=== PATIENT | female | born 1990 | race Caucasian/White ===

== ENCOUNTER 2017-03-17 17:15 | Emergency (ER) | payer OTHER ==
--- NOTE | 2017-03-17 17:28 | PDOC ---
History of Present Illness - General History Source: Patient Exam Limitations: No Limitations - History of Present Illness Initial Comments: 03/17/17 18:09 The patient is a year old female, with a significant past medical history of Asthma, who presents to the emergency department with, Right sided abdominal pain that began tuesday. . She states the RLQ pain began tuesday suddenly while at home. She reports taking Z pack for pain initially. Patient reports returning of RLQ pain yesterday when off antibiotics. She reports radiation of pain to left side flank and LLQ yesterday secondary to RLQ pain. Patient reports experiencing urinary frequency and urgency yesterday secondary to RLQ pain. Patient reports experiencing intermittent episodes of nausea and chills secondary to RLQ pain. She states experiencing one episode of hematuria last week and one episode of vaginal discharge yesterday. She reports her last menstrual cycle was 3 weeks ago. Patient reports taking Amoxicillin two weeks ago for 5 days for possible UTI. She denies chest pain, shortness of breath, headache and dizziness. She denies fever, chills, nausea, vomit, diarrhea and constipation. PMH: Asthma Allergies: Seasonal Past surgical history: Tonsillectomy Social history: Social drinker, No smoking. No illicit drugs. PCP: Dr. Fletcher 03/17/17 18:29 <Corwin Longoria - Last Filed: 03/17/17 18:29> <Vignesh Dubose - Last Filed: 03/17/17 18:38> - General Chief Complaint: Pain Stated Complaint: UIT, FLANK & BACK PAIN Time Seen by Provider: 03/17/17 17:25 Past History <Corwin Longoria - Last Filed: 03/17/17 18:29> <Vignesh Dubose - Last Filed: 03/17/17 18:38> - Past Medical History Allergies/Adverse Reactions: Allergies Allergy/AdvReac Type Severity Reaction Status Date / Time No Known Allergies Allergy Verified 03/17/17 17:25 Home Medications: Ambulatory Orders Cephalexin [Keflex] 500 mg PO TID #21 capsule 03/17/17 Montelukast Na [Singulair -] 10 mg PO HS 03/17/17 Review of Systems - Review of Systems Able to Perform ROS?: Yes Comments:: 03/17/17 18:09 CONSTITUTIONAL: Absent: Fever, Chills, Diaphoresis, Generalized Weakness, Malaise, Loss of Appetite HEENT: Absent: Rhinorrhea, Nasal Congestion, Throat Pain, Throat Swelling, Difficulty Swallowing, Mouth Swelling, Ear Pain, Eye Pain, Visual Changes CARDIOVASCULAR: Absent: Chest Pain, Syncope, Palpitations, Irregular Heart Rate, Lightheadedness , Peripheral Edema RESPIRATORY: Absent: Cough, Shortness of Breath, SOB with Exertion, Orthopnea, Wheezing, Stridor, Hemoptysis GASTROINTESTINAL: Absent: Abdominal pain, Abdominal Distension, Nausea, Vomiting, Diarrhea, Constipation, Melena, Hematochezia GENITOURINARY: Absent: Dysuria, Frequency, Urgency, Hesitancy, Flank Pain, Genital Pain MUSCULOSKELETAL:+RLQ pain. +LLQ pain. +Left flank pain. Absent: Myalgia, Arthralgia, Joint Swelling, Neck Pain SKIN: Absent: Rash, Itching, PalloR HEMATOLOGIC/IMMUNOLOGIC: Absent: Easy Bleeding, Easy Bruising, Lymphadenopathy, Frequent infections ENDOCRINE: Absent: Unexplained Weight Gain, Unexplained Weight Loss, Heat Intolerance, Cold Intolerance NEUROLOGIC: Absent: Headache, Focal Weakness, Paresthesias, Vertigo, Lightheadedness, Unsteady Gait, Seizure, Mental Status Changes, Incontinence PSYCHIATRIC: Absent: Anxiety, Depression All Other Systems: Reviewed and Negative <Corwin Longoria - Last Filed: 03/17/17 18:29> *Physical Exam - Vital Signs Last Vital Signs Temp Pulse Resp BP Pulse Ox 98.9 F 79 15 105/66 98 03/17/17 17:21 03/17/17 17:21 03/17/17 17:21 03/17/17 17:21 03/17/17 17:21 - Physical Exam Comments: 03/17/17 18:09 GENERAL: The patient is awake, alert, and fully oriented, in no acute distress. HEAD: Normal with no signs of trauma. EYES: Pupils equal, round and reactive to light, extraocular movements intact, sclera anicteric, conjunctiva clear. ENT: Ears normal, nares patent, oropharynx clear without exudates. Moist mucous membranes. NECK: Normal range of motion, supple without lymphadenopathy, JVD, or masses. LUNGS: Breath sounds equal, clear to auscultation bilaterally. No wheezes, and no crackles. HEART: Regular rate and rhythm, normal S1 and S2 without murmur, rub or gallop. ABDOMEN: +left lower quadrant tenderness to palpation. Soft, nontender, normoactive bowel sounds. No guarding, no rebound. No masses. BACK: No CVA tenderness. EXTREMITIES: Normal range of motion, no edema. No clubbing or cyanosis. No cords , erythema, or tenderness. NEUROLOGICAL: Cranial nerves II through XII grossly intact. Normal speech, normal gait. PSYCH: Normal mood, normal affect. SKIN: Warm, Dry, normal turgor, no rashes or lesions noted. <Corwin Longoria - Last Filed: 03/17/17 18:29> ED Treatment Course - ADDITIONAL ORDERS Additional order review: Laboratory Results 03/17/17 03/17/17 17:30 17:30 Urine Color Yellow Urine Appearance Clear Urine pH 6.5 Ur Specific [place] 1.020 Urine Protein Negative Urine Glucose (UA) Negative Urine Ketones Negative Urine Blood Trace-intact H Urine Nitrite Negative Urine Bilirubin Negative Urine Urobilinogen 0.2 Ur Leukocyte Esterase 2+ H Urine HCG, Qual Negative <Corwin Longoria - Last Filed: 03/17/17 18:29> Medical Decision Making - Medical Decision Making 03/17/17 18:31 26-year-old female presents complaining of dysuria, urgency, and hematuria since last week. Early last month she took amoxicillin for an upper respiratory infection. When she developed these urinary symptoms, she states she had Zithromax at home and she took a Z-Shekhar for the symptoms. She felt a little better but then it got worse again. She now presents complaining of ongoing frequency and dysuria. She has some lower abdominal pain, sometimes right-sided and sometimes left-sided. She also has some mild left flank pain. There is no nausea or vomiting. There is no fever. On examination, the abdomen is notable for mild suprapubic discomfort palpation. There is no guarding or rebound. There is no CVA tenderness or flank tenderness. Urinalysis is notable for positive leukocyte esterase. Findings are consistent with UTI, both by history and by urinalysis. Patient will be prescribed Keflex 500 mg 3 times a day for 7 days. 03/17/17 18:38 The scribe's documentation has been prepared under my direction and personally reviewed by me in its entirety. I have confirmed that the note above accurately reflects all work, treatment, procedures, and medical decision- making performed by me. <Vignesh Dubose - Last Filed: 03/17/17 18:38> *DC/Admit/Observation/Transfer - Attestations Scribe Attestion: 03/17/17 18:10 Documentation prepared by Corwin Longoria, acting as medical writer for Vignesh Dubose MD/DO. <Corwin Longoria - Last Filed: 03/17/17 18:29> - Discharge Dispostion Admit: No <Vignesh Dubose - Last Filed: 03/17/17 18:38> Diagnosis at time of Disposition: Urinary tract infection Qualifiers: Urinary tract infection type: acute cystitis Hematuria presence: without hematuria Qualified Code(s): N30.00 - Acute cystitis without hematuria - Discharge Dispostion Condition at time of disposition: Good - Prescriptions Prescriptions: Cephalexin [Keflex] 500 mg PO TID #21 capsule - Referrals Referrals: Jacques Fletcher MD [Primary Care Provider] - 3 days - Patient Instructions Printed Discharge Instructions: DI for Urinary Tract Infection (UTI) Additional Instructions: You were evaluated today for abdominal discomfort along with urinary urgency and increased frequency of urination. The urinalysis testing shows that you have a urinary tract infection. You were started on Keflex, 500 mg, an antibiotic for urinary tract infection, in the emergency department. You are advised to take the antibiotic 3 times a day for 7 days. The prescription has been sent electronically to your pharmacy. Drink plenty of fluids. Follow-up with your primary care physician. If you develop any signs of worsening urinary tract infection such as vomiting, fever, or worsening severe pain, return to the emergency department.
[2017-03-17 17:32] VITALS: BP 105/66; PULSE 79; TEMP 98.9; BMI 28.0
[2017-03-17 17:41] LABS: PH,URINE 6.5 (4.5-8); URINE APPEARANCE Clear; URINE BILIRUBIN Negative (NEGATIVE); URINE GLUCOSE (UA) Negative (NEGATIVE); URINE KETONE Negative (NEGATIVE); URINE NITRITE Negative (NEGATIVE); URINE PROTEIN Negative (NEGATIVE); URINE UROBILINOGEN 0.2 (0.2-1.0)
[2017-03-17 17:42] LABS: URINE BLOOD Trace-intact (NEGATIVE); URINE COLOR YELLOW; URINE LEUK ESTERASE 2+ (NEGATIVE)
[2017-03-17 18:26] LABS: URINE BACTERIA FEW /hpf (NEGATIVE); URINE RBC 0-2 /hpf (0-3)
[2017-03-17] MEDS ORDERED: CEPHALEXIN MONOHYDRATE 500 MG CAPSULE (UD) PO ONE (18:31)
[2017-03-17] MEDS ORDERED: CEPHALEXIN MONOHYDRATE 500 MG CAPSULE (UD) ONE (18:41)
== END 2017-03-17 18:48 | disposition home or self-care (01) ==
LOC: FER 17:15
DX: N30.00 Acute cystitis without hematuria (principal)
CPT/HCPCS: 81003; 81015; 84703; 87086; 87186; 99281-25